=== PATIENT | male | born 1945 | race Caucasian/White ===

== ENCOUNTER 2017-06-25 13:22 | Inpatient (IN) | payer MEDICARE, BC ==
[~2017-06-25] VITALS: Ht 175.3 cm; Wt 120.2 kg
[~2017-06-25 13:22] MED LIST: ALDACTONE25 MG PO; ALLOPURINOL300 MG PO; AMARYL2 MG PO; AMIODARONE HCL200 MG PO; Apixab PO; CARVEDILOL12.5 MG PO; COREG12.5 MG PO; COZAAR100 MG PO; DOXYCYCLINE HY100 MG PO; FLUCTICASONE INH; FUROSEMIDE40 MG PO; GLIMEPIRIDE2 MG PO; HYDRALAZINE HCL25 MG PO; IPRATROPIUM BRO15 ML INH; MONTELUKAST SOD10 MG PO; PANTOPRAZOLE SO40 MG PO; SINGULAIR10 MG PO; SYMBICORT 16010.2 GM; ZANTAC300 MG PO
[2017-06-25] MEDS ORDERED: ASPIRIN 81 MG CHEW TAB PO ONE ×2 (14:15→15:30)
[2017-06-25 14:31] LABS: BASOPHILS % 0.3 % (0.0-1.0); EOSINOPHILS # (AUTO) 0.3 (0.0-0.4); EOSINOPHILS % 5.3 % (0.0-6.0); HEMATOCRIT 36.1 % (38.2-49.6); HEMOGLOBIN 11.5 g/dL (14.0-18.0); LYMPHOCYTES # (AUTO) 1.1 (1.0-3.2); LYMPHOCYTES % 19.7 % (18.0-39.1); MEAN CORPUSCULAR HEMOGLOBIN 28.8 pg (28-32); MEAN CORPUSCULAR HGB CONC 31.9 g/dL (31-35); MEAN CORPUSCULAR VOLUME 90.3 fL (81-99); MONOCYTES # (AUTO) 0.4 (0.2-0.8); MONOCYTES % 7.6 % (4.4-11.3); NEUTROPHILS # (AUTO) 3.9 (2.1-6.9); NEUTROPHILS % 66.8 % (38.7-80.0); PLATELET COUNT 129 x10e3/uL (140-360); RED CELL DISTRIBUTION WIDTH 15.9 % (11.7-14.4)
[2017-06-25 14:39] LABS: INR 1.42; PROTHROMBIN TIME 16.3 seconds (11.9-14.5)
[2017-06-25 14:40] LABS: PARTIAL THROMBOPLASTIN TIME 28.7 seconds (23.8-35.5)
[2017-06-25 14:46] LABS: ALBUMIN 3.3 g/dL (3.5-5.0); ALBUMIN/GLOBULIN RATIO 1.1 (0.8-2.0); ANION GAP 14.8 mmol/L (8-16); CALCIUM 9.2 mg/dL (8.4-10.2); CREATININE, SERUM 2.42 mg/dL (0.72-1.25); MAGNESIUM 2.5 MG/DL (1.3-2.1); POTASSIUM 3.8 mmol/L (3.5-5.1)
[2017-06-25 14:55] LABS: CREATINE KINASE MB 2.7 ng/mL (0-5.0)
[2017-06-25] MEDS ORDERED: MORPHINE SULFATE 2 MG/ML SYR IV PRN (15:30)
[2017-06-25] MEDS ORDERED: SODIUM CHLORIDE FLUSH 10 ML SYR INJ PRN (15:30)
[2017-06-25] MEDS ORDERED: NITROGLYCERIN 0.4 MG SUBL SL PRN (15:30)
--- NOTE | 2017-06-25 15:36 | Diagnostic Imaging Report ---
PROCEDURE: A single AP view of the chest. COMPARISON: 10/12/2016 INDICATIONS: CHEST PAIN FINDINGS: Lines/tubes: Left chest wall pacemaker. Lead tips are not well seen due to technique. Lungs: The bibasilar opacities are likely related to subsegmental atelectasis. No evidence of infection or edema. Pleura: There is no pleural effusion or pneumothorax. Heart and mediastinum: Mild cardiomegaly. Bones: No acute bony abnormality. IMPRESSION: No evidence of infection or edema. Dictated by: Boogie Lopez M.D. on 06/25/2017 at 15:38 Electronically approved by: Boogie Lopez M.D. on 06/25/2017 at 15:38
[2017-06-25 15:40] LABS: CLARITY,URINE CLEAR (CLEAR); COLOR,URINE YELLOW (YELLOW); LEUKOCYTE ESTERASE ,URINE NEGATIVE (NEGATIVE)
[2017-06-25 15:41] LABS: BILIRUBIN,URINE NEGATIVE (NEGATIVE); KETONES,URINE NEGATIVE (NEGATIVE); NITRITE,URINE NEGATIVE (NEGATIVE); PROTEIN,URINE DIPSTICK TRACE (NEGATIVE); URINE UROBILINOGEN 0.2 mg/dL (0.2 - 1)
[2017-06-25 15:43] LABS: BACTERIA,URINE RARE /HPF; MUCUS,URINE FEW (RARE); RBC,URINE 0-5 /HPF (0-5)
[2017-06-25] MEDS: FAMOTIDINE 20 MG TAB PO SCH (15:46)
--- OUTSIDE RECORDS SUMMARY | 2017-06-25 16:30 | XMS REPORT ---
Author Author [facility] Address Unknown Phone Unavailable Care Team Providers Care Panel Assembler Name Role Phone KATHLEEN MCDOWELL Unavailable Unavailable Problems This patient has no known problems. Allergies, Adverse Reactions, Alerts This patient has no known allergies or adverse reactions. Medications This patient has no known medications. Results Test Description Test Time Test Comments Text Results Atomic Results Result Comments CHEST SINGLE (PORTABLE) [place] [address] Patient Name: GERA MENDEZ JR MR #: [id number] : 1945 Age/Sex: 72/M Req #: [id number] Adm Physician: Ordered by: LURDES BEE IMPREGNATION OPERATOR Report #: [id number] Location: ER Room/Bed: Procedure: [id number] DX/CHEST SINGLE (PORTABLE) Exam Date: 06/25/17 Exam Time: 1430 REPORT STATUS: Signed PROCEDURE: A single AP view of the chest. COMPARISON: 10/12/2016 INDICATIONS: CHEST PAIN FINDINGS: Lines/tubes: Left chest wall pacemaker. Lead tips are not well seen due to technique. Lungs: The bibasilar opacities are likely related to subsegmental atelectasis. No evidence of infection or edema. Pleura: There is no pleural effusion or pneumothorax. Heart and mediastinum: Mild cardiomegaly. Bones: No acute bony abnormality. IMPRESSION: No evidence of infection or edema. Dictated by: Debra Lopez M.D. on 06/25/2017 at 15:38 Electronically approved by: Debra Lopez M.D. on 06/25/2017 at 15:38 Dictated By: DEBRA LOPEZ MD [id number] Transcribed By: ERNA on 06/25/17 1538 COPY TO: LURDES BEE NP
[2017-06-25 18:00] VITALS: BP 168/88
[2017-06-25 19:26] VITALS: BP 168/88
[2017-06-25 20:00] VITALS: BP 149/80
[2017-06-25] MEDS: GLIMEPIRIDE 2 MG TAB PO SCH (20:38)
[2017-06-25] MEDS: HYDRALAZINE HCL 25 MG TAB PO SCH (20:38)
[2017-06-25] MEDS: FUROSEMIDE INJ 10 MG/ML 2 ML VIAL IV SCH (20:38)
[2017-06-25] MEDS: CARVEDILOL 12.5 MG TAB PO SCH (20:39)
[2017-06-25] MEDS ORDERED: [UNRECOGNIZED DRUG - OTHER] PO SCH (21:00)
[2017-06-25] MEDS ORDERED: APIXABAN 5 MG TABLET PO SCH (21:00)
[2017-06-25 23:39] LABS: CREATINE KINASE MB 2.6 ng/mL (0-5.0)
[2017-06-25 23:45] VITALS: BP 149/83
[2017-06-26] MEDS: FAMOTIDINE 20 MG TAB PO SCH ×2 (03:45→16:19)
[2017-06-26 04:30] VITALS: BP 118/51
[2017-06-26 06:14] LABS: BASOPHILS % 0.5 % (0.0-1.0); EOSINOPHILS # (AUTO) 0.4 (0.0-0.4); HEMATOCRIT 34.2 % (38.2-49.6); LYMPHOCYTES # (AUTO) 1.3 (1.0-3.2); LYMPHOCYTES % 22.2 % (18.0-39.1); MEAN CORPUSCULAR HEMOGLOBIN 28.6 pg (28-32); MEAN CORPUSCULAR HGB CONC 32.2 g/dL (31-35); MEAN CORPUSCULAR VOLUME 88.8 fL (81-99); MONOCYTES # (AUTO) 0.5 (0.2-0.8); MONOCYTES % 8.2 % (4.4-11.3); NEUTROPHILS # (AUTO) 3.7 (2.1-6.9); NEUTROPHILS % 62.8 % (38.7-80.0); PLATELET COUNT 119 x10e3/uL (140-360); RED BLOOD COUNT 3.85 x10e6/uL (4.3-5.7); RED CELL DISTRIBUTION WIDTH 15.8 % (11.7-14.4)
[2017-06-26 06:27] LABS: INR 1.32; PARTIAL THROMBOPLASTIN TIME 29.1 seconds (23.8-35.5); PROTHROMBIN TIME 15.4 seconds (11.9-14.5)
[2017-06-26 06:38] LABS: ANION GAP 12.4 mmol/L (8-16); CALCIUM 9.1 mg/dL (8.4-10.2); CHOL/HDL RATIO 6.5 (3.9-4.7); CREATININE, SERUM 2.26 mg/dL (0.72-1.25); POTASSIUM 3.4 mmol/L (3.5-5.1)
[2017-06-26] MEDS ORDERED: GLIMEPIRIDE 2 MG TAB PO SCH (07:30)
--- NOTE | 2017-06-26 07:40 | Diagnostic Imaging Report ---
EXAMINATION: Chest, CHEST SINGLE (PORTABLE) INDICATION: Chest pain COMPARISON: Portable chest 06/25/2017 FINDINGS: LINES: Left chest cardiac device with leads projecting over the expected regions of the right atrium and ventricle. Heart: Normal cardiac silhouette. Vascular: The pulmonary vasculature is within normal limits. Atherosclerotic calcifications of the aortic arch. Mediastinum: No mediastinal, hilar, or axillary mass or lymphadenopathy. Lungs: No parenchymal mass. No focal consolidation. Bibasilar atelectasis. Pleura: No pleural effusion. No pneumothorax. Bones: No acute osseous abnormality. Degenerative changes of the thoracic spine. Soft tissues: Normal. Impression: No acute radiographic abnormality. Signed by: Dr. Gaetano Ennis M.D. on 06/26/2017 7:37 AM
[2017-06-26 07:46] VITALS: BP 159/77
[2017-06-26] MEDS: GLIMEPIRIDE 2 MG TAB PO SCH ×2 (08:53→16:18)
[2017-06-26] MEDS: HYDRALAZINE HCL 25 MG TAB PO SCH ×3 (08:54→21:48)
[2017-06-26] MEDS: FUROSEMIDE INJ 10 MG/ML 2 ML VIAL IV SCH ×3 (08:54→21:47)
[2017-06-26] MEDS: CARVEDILOL 12.5 MG TAB PO SCH ×2 (08:54→16:19)
[2017-06-26] MEDS: AMIODARONE HCL 200 MG TAB PO SCH (08:54)
[2017-06-26] MEDS: PANTOPRAZOLE SOD 40 MG TABEC PO SCH (08:55)
[2017-06-26] MEDS: MONTELUKAST SODIUM 10 MG TAB PO SCH (08:55)
[2017-06-26] MEDS: LOSARTAN POTASSIUM 100 MG TAB PO SCH (08:55)
[2017-06-26] MEDS: ALLOPURINOL 300 MG TAB PO SCH (08:55)
[2017-06-26] MEDS ORDERED: APIXABAN 5 MG TABLET PO SCH ×2 (09:00)
[2017-06-26] MEDS ORDERED: HYDRALAZINE HCL 25 MG TAB PO SCH (09:00)
[2017-06-26] MEDS ORDERED: [UNRECOGNIZED DRUG - OTHER] PO SCH (09:00)
[2017-06-26] MEDS ORDERED: CARVEDILOL 12.5 MG TAB PO SCH (09:00)
[2017-06-26 09:11] VITALS: BP 159/77
--- NOTE | 2017-06-26 09:55 | History and Physical ---
HISTORY OF PRESENT ILLNESS: This is a 72-year-old male with a history of coronary artery disease, with a history of hypertension and atrial fibrillation, was in usual state of health until about a week ago the patient started with increased shortness of breath, increased weight gain, and was treated with Lasix; and chronic Lian. Patient continued to have weight gain and also shortness of breath and had sustained chest pains yesterday, and the patient came to the emergency room and was admitted for rule out acute coronary syndrome. PAST MEDICAL HISTORY: History of hypertension, history of atrial fibrillation, history of diabetes mellitus, history of allergies, history of reflux esophagitis. MEDICINES: He takes at home are: 1. Allopurinol 300 mg daily for his gout. 2. Amiodarone 200 mg daily. 3. Symbicort 160 per 4.5. 4. Carvedilol 12.5 mg twice a day. 5. Lasix 80 mg a day. 6. Glimepiride 2 mg. 7. Hydralazine 25 mg b.i.d. 8. Losartan 100 mg. 9. Singulair 10. 10. Pantoprazole 40 mg. 11. Eliquis 5 mg twice a day. 12. Fluticasone 100 mcg inhaler. PAST SURGICAL HISTORY: The patient had history of AICD placement with Dr. Brush and also tonsillectomy. FAMILY HISTORY: Positive for hypertension and coronary artery disease and diabetes. REVIEW OF SYSTEMS: Positive for chest pain. Positive for shortness of breath. Some orthopnea. No PND. Positive for pedal edema. No nausea, vomiting, diarrhea. No constipation. No rectal bleeding. No hematochezia, no hematemesis either. PHYSICAL EXAMINATION: GENERAL: Patient is alert and oriented x3. VITAL SIGNS: Temperature is 97, blood pressure is 118/51, pulse oximetry 98%. HEENT: Normocephalic, atraumatic. Pupils react to light and accommodation. CVS: S1 and S2 regular rate and rhythm. Irregularly irregular. ABDOMEN: Nontender, nondistended. EXTREMITIES: No clubbing, no cyanosis. Patient has compression socks edema. Trace edema in lower extremity also. LABORATORY VALUES: White count is 5.8, hemoglobin of 11.5, hematocrit of 36.1, RDW is 15.9. Chemistry: Sodium 140, BUN of 81, creatinine of 2.42, magnesium is 2.5. Troponin is 0.033, 0.04, and 0.039. BNP was 352. LDL was 134, HDL was 35, cholesterol was 284, and triglyceride of 294. IMAGING: Chest x-ray showed no evidence of infection or edema, mild cardiomegaly. ASSESSMENT: 1. Chest pain. 2. History of coronary artery disease. 3. History of systolic heart failure, looks like compensated right now. 4. Acute kidney injury with history of chronic kidney disease. 5. Atrial fibrillation. 6. Diabetes mellitus. 7. Morbid obesity. 8. Gout. PLAN: To continue IV diuresis of the patient. He is on IV 20 mg 3 times a day, will continue the same. I will go ahead and cut down his Eliquis to 2.5 for his kidney disease. Continue monitoring his electrolytes. Dr. Her has been consulted. Will order an echocardiogram. Further recommendations on clinical course. Will continue monitoring the patient along with cardiology and also check a thyroid panel. Job#: [id number]
[2017-06-26 11:14] VITALS: BP 156/76
--- NOTE | 2017-06-26 13:58 | Consultation ---
DATE OF CONSULTATION: June 26, 2017 CARDIOLOGY CONSULTATION REASON FOR CONSULTATION: Chest pain. HISTORY OF PRESENT ILLNESS: This is a 72-year-old male with known history of nonischemic cardiomyopathy, hypertension, hyperlipidemia, diabetes with end-organ damage, chronic kidney disease stage 4, gout. The patient presents to [facility] with increased abdominal girth, was noted with some shortness of breath. Cardiology was consulted for evaluation. Patient seen in room in no acute distress. Denies any chest pains. Does have some shortness of breath which is chronic. BNP was only 350. Chest x-ray is showing no acute findings. PAST MEDICAL HISTORY 1. Nonischemic cardiomyopathy by heart catheterization December 2015. 2. Chronic systolic heart failure. 3. Hypertension. 4. Hyperlipidemia. 5. Diabetes with end-organ damage. 6. Asthma. 7. Chronic kidney disease stage 4. 8. Reflux. 9. Obesity. 10. Gout. 11. Status post bi-V ICD. SURGICAL HISTORY 1. Sinus surgery. 2. Bi-V ICD. SOCIAL HISTORY: He is . Nonsmoker, no alcohol. 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 FAMILY HISTORY: Father at the age of 82 with apparent history of CVA. Mother with a history of hypertension. Has 1 sister with a history of hypertension. Four children reported as healthy. REVIEW OF SYSTEMS GENERAL: Positive for some weakness. No fatigue. No fevers, no chills. HEENT: No dizziness, lightheadedness. No vision impairments. No nasal drainage, epistaxis. No sore throat. PULMONARY: Positive for shortness of breath on exertion which is chronic. No hemoptysis. CARDIOVASCULAR: No chest pain, no palpitations. GI: Abdominal bloating, girth. Good appetite. : Positive for frequency and urgency. No hematuria. MUSCULOSKELETAL: Generalized joint pains. PERIPHERAL VASCULAR: Chronic lower extremity edema slightly. SKIN: No rashes or sores. NEUROLOGIC: No lightheadedness, dizziness or seizure activity. PHYSICAL EXAMINATION VITAL SIGNS: Height 69 inches, weight 267 pounds. Temperature 97.7, pulse 75, respiratory 18, blood pressure 156/76, pulse ox 97 on room air. GENERAL: No acute distress. Appears stated age. HEENT: Pupils equal and reactive. Extraocular motor intact. Normocephalic. Trachea midline. No JVD, no thyromegaly. No carotid bruits. HEART: Regular rate and rhythm. PMI in 5th intercostal space. RESPIRATORY: Bilateral breath sounds clear to auscultation. No wheezes, no rales. ABDOMEN: Soft, nontender. No organomegaly noted. EXTREMITIES: +1 lower extremity edema. VASCULAR: +2 radial pulses, +2 bilateral DP/PT pulses. NEUROLOGIC: Cranial nerves 2-12 seem intact. LABS: Sodium 142, potassium 3.4, chloride 110, BUN 76 with creatinine 2.2, glucose 129. BNP 352. TSH 1.7. White blood cell count 5, hemoglobin 11, hematocrit 34.2, platelets 119. CHEST X-RAY: No acute abnormalities. EKG: Sinus rhythm. IMPRESSION 1. Chronic systolic heart failure. 2. Paroxysmal atrial fibrillation. 3. Hypertension. 4. Chronic kidney disease stage 4. 5. Diabetes. 6. Hyperlipidemia. 7. Obesity. PLAN-CLEMENTE 1. Patient with a history of nonischemic cardiomyopathy. Currently appears euvolemic. BNP is only 350. Will continue heart failure therapy. 2. Patient with a long-standing history of chronic kidney disease. Will suggest renal consult. 3. Echo has been ordered. The cardiology attending will review. Thank you very much for this consult. Will follow patient and adjust cardiac therapy as clinical course dictates. Dictated by: Ravi Hurd NP Job#: [id number] BIA
[2017-06-26] MEDS ORDERED: POTASSIUM CHLORIDE 20 MEQ TAB CR PO ONE (15:15)
[2017-06-26 17:22] LABS: CLARITY,URINE CLEAR (CLEAR); COLOR,URINE YELLOW (YELLOW)
[2017-06-26 17:23] LABS: LEUKOCYTE ESTERASE ,URINE NEGATIVE (NEGATIVE); NITRITE,URINE NEGATIVE (NEGATIVE); PROTEIN,URINE DIPSTICK NEGATIVE (NEGATIVE)
[2017-06-26 17:24] LABS: BILIRUBIN,URINE NEGATIVE (NEGATIVE); KETONES,URINE NEGATIVE (NEGATIVE); URINE UROBILINOGEN 0.2 mg/dL (0.2 - 1)
[2017-06-26 17:37] LABS: BACTERIA,URINE FEW /HPF; EPITHELIAL CELLS,URINE FEW /LPF; WBC,URINE (MAN) 0-5 /HPF (0-5)
[2017-06-26 17:39] LABS: CREATININE,URINE RANDOM 49.19 mg/dL (63-166); SODIUM,URINE 77 mmol/L
[2017-06-26 19:00] VITALS: BP 147/78
[2017-06-26] MEDS: APIXABAN 5 MG TABLET PO SCH (21:48)
[2017-06-26 22:14] VITALS: BP 147/78
--- NOTE | 2017-06-26 22:18 | Consultation ---
DATE OF CONSULTATION: June 26, 2017 NEPHROLOGY CONSULTATION REASON FOR CONSULTATION: Chronic kidney disease. HISTORY OF PRESENT ILLNESS: This is a pleasant, 72-year-old white gentleman with past medical history of chronic kidney disease, stage 3/4 with . Ischemic cardiomyopathy with EF between 10% and 40%, according to the patient, status post biventricular AICD, sinus surgery, hypertension, hyperlipidemia, diabetes, obesity, gout. He was admitted with increasing abdominal girth and weight. Serum creatinine was noted to be 2.3 for which nephrology consultation was obtained for further evaluation and management and treatment. At the time of my examination, he appeared in no acute distress. He denied any headache, blurry vision, double vision, earache, discharge from the ears, sore throat, fevers, chills, chest pain, shortness of breath, cough, paroxysmal nocturnal dyspnea, dyspnea on exertion, abdominal pain, diarrhea, bleeding, history of kidney problems, skin rash, joint pain or any focal weakness. PAST MEDICAL, SURGICAL HISTORY: As above. PERSONAL, SOCIAL HISTORY: No history of alcohol or tobacco. MEDICATIONS: See the medication sheet. It was reviewed. PHYSICAL EXAMINATION GENERAL: He appeared in no acute distress. VITAL SIGNS: Blood pressure 156/76, respirations 18, heart rate 75, temperature 97.7. HEENT: Head was normocephalic, atraumatic. Pupils are reactive to light. Mouth: Oral mucosa was moist. NECK: Supple. There is no significant lymphadenopathy or JVD. CHEST: Fair air entry with no crackles. HEART: S1 and S2. ABDOMEN: Obese but soft. Bowel sounds are positive. EXTREMITIES: No significant edema. SIDEHAND: He was awake and alert. Cranial nerves were intact. There was no gross motor deficit noted. LABORATORY DATA: Sodium 142, potassium 3.4, chloride 110, CO2 of 23, BUN 17, creatinine 2.26. Normal LFTs. BNP was 352 yesterday. Albumin was 3. White cell count 5.8. Hemoglobin 11, hematocrit 34.2, platelets 119,000. Chest x-ray was negative. IMPRESSION: 1. Chronic kidney disease, stage 3/4, relatively stable. Current creatinine at 2.26 MOST LIKELY from nephrosclerosis with an element of cardiorenal syndrome? He is nonoliguric by history. 2. Congestive heart failure with nonischemic cardiomyopathy, euvolemic and compensated at the present time. 3. Mild anemia secondary to chronic kidney disease. PLAN: Strict I's and O's. No nonsteroidal anti-inflammatory drugs, MARTIN inhibitor, IV dye, ARB. UA, spot urine sodium and creatinine. Ultrasound of the kidneys, CBC and BMP in the a.m. Continue current treatment for now. Maybe after 24 hours or so, we can switch the IV Lasix to oral Lasix. I also gave him my business card and recommended following up in the outpatient setting in 3-4 weeks after discharge. Further recommendations to follow. Thank you for the consultation. Job#: [id number] TAMARA MCCOY
--- NOTE | 2017-06-26 22:30 | Diagnostic Imaging Report ---
EXAM: Renal Ultrasound INDICATION: Chronic medical renal disease COMPARISON: None TECHNIQUE: Transverse and longitudinal images of the kidneys and bladder were obtained. FINDINGS: Right Kidney: Size: 10.7 x 6.8 x 5.7 cm. Appearance: Increased echogenicity. Collecting system: No hydronephrosis Stones: * Lateral inferior 1.6 cm stone. * Inferior mid interpolar region 1.9 cm stone. Cyst/Mass: * Lateral interpolar exophytic cystic lesion 1.4 x 1.1 x 1 cm. * Lateral inferior interpolar cyst measuring 2.9 x 1.9 x 2.2 cm. * Inferior medial cyst measuring 3.2 x 3.3 x 3.1 cm Left Kidney: Size: 9.7 x 5.8 x 5 cm Appearance: Increased echogenicity. Collecting system: No hydronephrosis Stones: * Echogenic left renal stone with posterior acoustic shadowing in the inferior mid renal collecting system measuring 1.4 cm in largest dimension Cyst/Mass: None Bladder: Normal IMPRESSION: 1. Bilateral nephrolithiasis as described above. 2. Right renal cystic changes. 3. Hyperechoic renal parenchyma suggestive of chronic medical renal disease Signed by: Dr. Everardo Mckinney M.D. on 06/26/2017 10:27 PM
[2017-06-27] VITALS: BP 147/75
[2017-06-27] MEDS: FAMOTIDINE 20 MG TAB PO SCH ×2 (03:14→16:04)
[2017-06-27 06:00] VITALS: BP 132/59
[2017-06-27 06:44] LABS: BASOPHILS % 0.6 % (0.0-1.0); EOSINOPHILS # (AUTO) 0.3 (0.0-0.4); EOSINOPHILS % 5.1 % (0.0-6.0); HEMATOCRIT 36.2 % (38.2-49.6); HEMOGLOBIN 11.7 g/dL (14.0-18.0); LYMPHOCYTES # (AUTO) 1.3 (1.0-3.2); LYMPHOCYTES % 24.1 % (18.0-39.1); MEAN CORPUSCULAR HGB CONC 32.3 g/dL (31-35); MEAN CORPUSCULAR VOLUME 89.8 fL (81-99); MONOCYTES # (AUTO) 0.6 (0.2-0.8); MONOCYTES % 10.5 % (4.4-11.3); NEUTROPHILS # (AUTO) 3.1 (2.1-6.9); NEUTROPHILS % 59.3 % (38.7-80.0); PLATELET COUNT 123 x10e3/uL (140-360); RED BLOOD COUNT 4.03 x10e6/uL (4.3-5.7); RED CELL DISTRIBUTION WIDTH 15.7 % (11.7-14.4)
[2017-06-27 07:15] LABS: ANION GAP 13.1 mmol/L (8-16); CALCIUM 9.3 mg/dL (8.4-10.2); CREATININE, SERUM 2.41 mg/dL (0.72-1.25); MAGNESIUM 2.1 MG/DL (1.3-2.1); POTASSIUM 3.1 mmol/L (3.5-5.1)
[2017-06-27] MEDS ORDERED: POTASSIUM CHLORIDE 20 MEQ TAB CR PO STA (07:44)
[2017-06-27 08:09] VITALS: BP 142/80
[2017-06-27 08:14] VITALS: BP 142/80
[2017-06-27] MEDS: FUROSEMIDE INJ 10 MG/ML 2 ML VIAL IV SCH ×3 (08:25→20:02)
[2017-06-27] MEDS: GLIMEPIRIDE 2 MG TAB PO SCH ×2 (08:25→16:04)
[2017-06-27] MEDS: APIXABAN 5 MG TABLET PO SCH ×2 (08:26→20:02)
[2017-06-27] MEDS: HYDRALAZINE HCL 25 MG TAB PO SCH ×3 (08:26→20:02)
[2017-06-27] MEDS: LOSARTAN POTASSIUM 100 MG TAB PO SCH (08:26)
[2017-06-27] MEDS: CARVEDILOL 12.5 MG TAB PO SCH ×2 (08:26→16:04)
[2017-06-27] MEDS: ALLOPURINOL 300 MG TAB PO SCH (08:26)
[2017-06-27] MEDS: AMIODARONE HCL 200 MG TAB PO SCH (08:26)
[2017-06-27] MEDS: PANTOPRAZOLE SOD 40 MG TABEC PO SCH (08:26)
[2017-06-27] MEDS: MONTELUKAST SODIUM 10 MG TAB PO SCH (08:26)
[2017-06-27] MEDS ORDERED: POTASSIUM CHLORIDE 20 MEQ TAB CR PO ONE (18:00)
[2017-06-27 18:55] VITALS: BP 139/69
[2017-06-27 20:03] VITALS: BP 139/69
[2017-06-28] VITALS (8 sets, daily range): BP systolic 54–171; BP diastolic 54–86
[2017-06-28] MEDS: FAMOTIDINE 20 MG TAB PO SCH ×2 (03:35→17:11)
[2017-06-28 07:04] LABS: ANION GAP 13.5 mmol/L (8-16); CALCIUM 9.4 mg/dL (8.4-10.2); CREATININE, SERUM 2.69 mg/dL (0.72-1.25); POTASSIUM 3.5 mmol/L (3.5-5.1)
[2017-06-28] MEDS: CARVEDILOL 12.5 MG TAB PO SCH ×2 (08:20→17:12)
[2017-06-28] MEDS: GLIMEPIRIDE 2 MG TAB PO SCH ×2 (08:20→17:11)
[2017-06-28] MEDS: PANTOPRAZOLE SOD 40 MG TABEC PO SCH (08:39)
[2017-06-28] MEDS: MONTELUKAST SODIUM 10 MG TAB PO SCH (08:39)
[2017-06-28] MEDS: ALLOPURINOL 300 MG TAB PO SCH (08:39)
[2017-06-28] MEDS: AMIODARONE HCL 200 MG TAB PO SCH (08:39)
[2017-06-28] MEDS: LOSARTAN POTASSIUM 100 MG TAB PO SCH (08:39)
[2017-06-28] MEDS: APIXABAN 5 MG TABLET PO SCH ×2 (08:39→20:22)
[2017-06-28] MEDS: HYDRALAZINE HCL 25 MG TAB PO SCH ×3 (08:39→20:22)
[2017-06-28] MEDS: FUROSEMIDE INJ 10 MG/ML 2 ML VIAL IV SCH ×3 (10:00→20:21)
[2017-06-28] MEDS ORDERED: SPIRONOLACTONE 25 MG TAB PO ONE (17:45)
[2017-06-29] VITALS (8 sets, daily range): BP systolic 134–158; BP diastolic 57–78
[2017-06-29] MEDS: FAMOTIDINE 20 MG TAB PO SCH ×2 (03:02→16:48)
[2017-06-29 06:42] LABS: ANION GAP 15.4 mmol/L (8-16); CALCIUM 9.3 mg/dL (8.4-10.2); CREATININE, SERUM 3.02 mg/dL (0.72-1.25); MAGNESIUM 2.1 MG/DL (1.3-2.1); POTASSIUM 3.4 mmol/L (3.5-5.1)
[2017-06-29] MEDS ORDERED: SPIRONOLACTONE 25 MG TAB PO SCH (09:00)
[2017-06-29] MEDS: AMIODARONE HCL 200 MG TAB PO SCH (09:00)
[2017-06-29] MEDS: GLIMEPIRIDE 2 MG TAB PO SCH ×2 (09:02→16:48)
[2017-06-29] MEDS: CARVEDILOL 12.5 MG TAB PO SCH ×2 (09:03→16:48)
[2017-06-29] MEDS: HYDRALAZINE HCL 25 MG TAB PO SCH ×3 (09:03→21:56)
[2017-06-29] MEDS: POTASSIUM CHLORIDE 20 MEQ TAB CR PO SCH (09:03)
[2017-06-29] MEDS: APIXABAN 5 MG TABLET PO SCH ×2 (09:03→21:56)
[2017-06-29] MEDS: FUROSEMIDE INJ 10 MG/ML 2 ML VIAL IV SCH ×3 (09:03→21:56)
[2017-06-29] MEDS: LOSARTAN POTASSIUM 100 MG TAB PO SCH (09:03)
[2017-06-29] MEDS: ALLOPURINOL 300 MG TAB PO SCH (09:04)
[2017-06-29] MEDS: MONTELUKAST SODIUM 10 MG TAB PO SCH (09:04)
[2017-06-29] MEDS: PANTOPRAZOLE SOD 40 MG TABEC PO SCH (09:04)
[2017-06-29 12:29] LABS: PHOSPHORUS 4.2 MG/DL (2.3-4.7)
[2017-06-29] MEDS ORDERED: POTASSIUM CHLORIDE 20 MEQ TAB CR PO NR (12:30)
[2017-06-30 00:14] VITALS: BP 164/80
[2017-06-30] MEDS: FAMOTIDINE 20 MG TAB PO SCH ×2 (03:44→15:21)
[2017-06-30 04:42] VITALS: BP 121/60
[2017-06-30 07:36] LABS: ALBUMIN 3.3 g/dL (3.5-5.0); ANION GAP 15.9 mmol/L (8-16); CALCIUM 9.4 mg/dL (8.4-10.2); CREATININE, SERUM 3.22 mg/dL (0.72-1.25); POTASSIUM 3.9 mmol/L (3.5-5.1)
[2017-06-30 08:10] VITALS: BP 121/57
[2017-06-30] MEDS: MONTELUKAST SODIUM 10 MG TAB PO SCH (09:30)
[2017-06-30] MEDS: PANTOPRAZOLE SOD 40 MG TABEC PO SCH (09:30)
[2017-06-30] MEDS: FUROSEMIDE INJ 10 MG/ML 2 ML VIAL IV SCH (09:30)
[2017-06-30] MEDS: LOSARTAN POTASSIUM 100 MG TAB PO SCH (09:30)
[2017-06-30] MEDS: APIXABAN 5 MG TABLET PO SCH ×2 (09:30→21:27)
[2017-06-30] MEDS: ALLOPURINOL 300 MG TAB PO SCH (09:30)
[2017-06-30] MEDS: GLIMEPIRIDE 2 MG TAB PO SCH ×2 (09:30→17:20)
[2017-06-30] MEDS: HYDRALAZINE HCL 25 MG TAB PO SCH ×3 (09:30→21:27)
[2017-06-30] MEDS: AMIODARONE HCL 200 MG TAB PO SCH (09:30)
[2017-06-30] MEDS: CARVEDILOL 12.5 MG TAB PO SCH ×2 (09:30→17:21)
[2017-06-30] MEDS: POTASSIUM CHLORIDE 20 MEQ TAB CR PO SCH (09:30)
[2017-06-30] MEDS: SPIRONOLACTONE 25 MG TAB PO SCH (09:30)
[2017-06-30 09:57] VITALS: BP 178/84
[2017-06-30 16:23] VITALS: BP 122/59
[2017-06-30] MEDS: FUROSEMIDE 40 MG TAB PO SCH (17:21)
[2017-06-30 20:00] VITALS: BP 134/65
[2017-07-01] VITALS: BP 122/56
[2017-07-01 04:00] VITALS: BP 129/70
[2017-07-01] MEDS: FAMOTIDINE 20 MG TAB PO SCH ×2 (04:30→14:26)
[2017-07-01] MEDS: FUROSEMIDE 40 MG TAB PO SCH (05:06)
[2017-07-01 07:17] LABS: ALBUMIN 3.4 g/dL (3.5-5.0); ALBUMIN/GLOBULIN RATIO 1.3 (0.8-2.0); ANION GAP 14.7 mmol/L (8-16); CREATININE, SERUM 3.31 mg/dL (0.72-1.25); MAGNESIUM 2.5 MG/DL (1.3-2.1); POTASSIUM 3.7 mmol/L (3.5-5.1)
[2017-07-01 07:38] VITALS: BP 126/58
[2017-07-01] MEDS: APIXABAN 5 MG TABLET PO SCH ×2 (08:25→22:23)
[2017-07-01] MEDS: AMIODARONE HCL 200 MG TAB PO SCH (08:25)
[2017-07-01] MEDS: SPIRONOLACTONE 25 MG TAB PO SCH (08:25)
[2017-07-01] MEDS: GLIMEPIRIDE 2 MG TAB PO SCH ×2 (08:25→16:32)
[2017-07-01] MEDS: HYDRALAZINE HCL 25 MG TAB PO SCH ×3 (08:25→22:24)
[2017-07-01] MEDS: LOSARTAN POTASSIUM 100 MG TAB PO SCH (08:25)
[2017-07-01] MEDS: CARVEDILOL 12.5 MG TAB PO SCH ×2 (08:25→16:32)
[2017-07-01] MEDS: ALLOPURINOL 300 MG TAB PO SCH (08:26)
[2017-07-01] MEDS: PANTOPRAZOLE SOD 40 MG TABEC PO SCH (08:26)
[2017-07-01] MEDS: MONTELUKAST SODIUM 10 MG TAB PO SCH (08:26)
[2017-07-01 11:37] LABS: CREATININE,URINE RANDOM 101.57 mg/dL (63-166); TOTAL PROTEIN, URINE 8.2 mg/dL (1-14)
[2017-07-01 11:43] VITALS: BP 150/64
[2017-07-01 14:04] LABS: TOTAL PROTEIN 24HR, URINE 106.6 mg/24hr (50-100)
[2017-07-01] MEDS: BUMETANIDE 1 MG TAB PO SCH (16:32)
[2017-07-01 16:58] VITALS: BP 156/70
[2017-07-01 20:00] VITALS: BP 152/77
[2017-07-02] VITALS (7 sets, daily range): BP systolic 141–156; BP diastolic 66–76
[2017-07-02] MEDS: FAMOTIDINE 20 MG TAB PO SCH ×2 (04:30→16:13)
[2017-07-02 06:34] LABS: ALBUMIN 3.3 g/dL (3.5-5.0); ANION GAP 13.8 mmol/L (8-16); CALCIUM 9.5 mg/dL (8.4-10.2); CREATININE, SERUM 3.21 mg/dL (0.72-1.25); POTASSIUM 3.8 mmol/L (3.5-5.1)
[2017-07-02] MEDS: GLIMEPIRIDE 2 MG TAB PO SCH ×2 (08:44→16:14)
[2017-07-02] MEDS: APIXABAN 5 MG TABLET PO SCH ×2 (08:44→21:11)
[2017-07-02] MEDS: SPIRONOLACTONE 25 MG TAB PO SCH (08:44)
[2017-07-02] MEDS: AMIODARONE HCL 200 MG TAB PO SCH (08:44)
[2017-07-02] MEDS: PANTOPRAZOLE SOD 40 MG TABEC PO SCH (08:45)
[2017-07-02] MEDS: CARVEDILOL 12.5 MG TAB PO SCH ×2 (08:45→16:14)
[2017-07-02] MEDS: MONTELUKAST SODIUM 10 MG TAB PO SCH (08:45)
[2017-07-02] MEDS: BUMETANIDE 1 MG TAB PO SCH ×2 (08:45→16:14)
[2017-07-02] MEDS: LOSARTAN POTASSIUM 100 MG TAB PO SCH (08:45)
[2017-07-02] MEDS: ALLOPURINOL 300 MG TAB PO SCH (08:45)
[2017-07-02] MEDS: HYDRALAZINE HCL 25 MG TAB PO SCH ×3 (08:45→21:11)
[2017-07-03] VITALS (7 sets, daily range): BP systolic 108–167; BP diastolic 52–80
[2017-07-03] MEDS: FAMOTIDINE 20 MG TAB PO SCH ×2 (04:23→15:19)
[2017-07-03 09:20] LABS: ALBUMIN 3.5 g/dL (3.5-5.0); ANION GAP 15.8 mmol/L (8-16); CALCIUM 9.7 mg/dL (8.4-10.2); CREATININE, SERUM 3.38 mg/dL (0.72-1.25); MAGNESIUM 2.5 MG/DL (1.3-2.1); POTASSIUM 3.8 mmol/L (3.5-5.1)
[2017-07-03] MEDS: GLIMEPIRIDE 2 MG TAB PO SCH ×2 (09:45→17:17)
[2017-07-03] MEDS: MONTELUKAST SODIUM 10 MG TAB PO SCH (09:46)
[2017-07-03] MEDS: CARVEDILOL 12.5 MG TAB PO SCH ×2 (09:46→17:18)
[2017-07-03] MEDS: HYDRALAZINE HCL 25 MG TAB PO SCH ×3 (09:46→21:20)
[2017-07-03] MEDS: LOSARTAN POTASSIUM 100 MG TAB PO SCH (09:46)
[2017-07-03] MEDS: AMIODARONE HCL 200 MG TAB PO SCH (09:46)
[2017-07-03] MEDS: PANTOPRAZOLE SOD 40 MG TABEC PO SCH (09:46)
[2017-07-03] MEDS: SPIRONOLACTONE 25 MG TAB PO SCH (09:46)
[2017-07-03] MEDS: BUMETANIDE 1 MG TAB PO SCH ×2 (09:46→17:17)
[2017-07-03] MEDS: ALLOPURINOL 300 MG TAB PO SCH (09:46)
[2017-07-03] MEDS: APIXABAN 5 MG TABLET PO SCH ×2 (09:46→21:30)
[2017-07-04] VITALS (8 sets, daily range): BP systolic 105–159; BP diastolic 53–72
[2017-07-04] MEDS: FAMOTIDINE 20 MG TAB PO SCH ×2 (04:00→15:05)
[2017-07-04 06:27] LABS: ALBUMIN 3.3 g/dL (3.5-5.0); CALCIUM 9.5 mg/dL (8.4-10.2); CREATININE, SERUM 3.63 mg/dL (0.72-1.25)
[2017-07-04] MEDS: GLIMEPIRIDE 2 MG TAB PO SCH ×2 (08:39→17:37)
[2017-07-04] MEDS: APIXABAN 5 MG TABLET PO SCH ×2 (08:39→21:24)
[2017-07-04] MEDS: HYDRALAZINE HCL 25 MG TAB PO SCH ×3 (08:39→21:00)
[2017-07-04] MEDS: BUMETANIDE 1 MG TAB PO SCH ×2 (08:39→17:37)
[2017-07-04] MEDS: CARVEDILOL 12.5 MG TAB PO SCH ×2 (08:39→17:37)
[2017-07-04] MEDS: LOSARTAN POTASSIUM 100 MG TAB PO SCH (08:39)
[2017-07-04] MEDS: AMIODARONE HCL 200 MG TAB PO SCH (08:39)
[2017-07-04] MEDS: SPIRONOLACTONE 25 MG TAB PO SCH (08:39)
[2017-07-04] MEDS: PANTOPRAZOLE SOD 40 MG TABEC PO SCH (08:40)
[2017-07-04] MEDS: MONTELUKAST SODIUM 10 MG TAB PO SCH (08:40)
[2017-07-04] MEDS: ALLOPURINOL 300 MG TAB PO SCH (08:40)
[2017-07-05] VITALS: BP 118/55
[2017-07-05 04:00] VITALS: BP 122/59
[2017-07-05] MEDS: FAMOTIDINE 20 MG TAB PO SCH ×2 (04:24→16:21)
[2017-07-05 07:28] LABS: ALBUMIN 3.6 g/dL (3.5-5.0); ALBUMIN/GLOBULIN RATIO 1.2 (0.8-2.0); ANION GAP 16.1 mmol/L (8-16); CALCIUM 9.5 mg/dL (8.4-10.2); CREATININE, SERUM 3.66 mg/dL (0.72-1.25); POTASSIUM 4.1 mmol/L (3.5-5.1)
[2017-07-05 08:32] VITALS: BP 119/56
[2017-07-05] MEDS: SPIRONOLACTONE 25 MG TAB PO SCH (08:50)
[2017-07-05] MEDS: PANTOPRAZOLE SOD 40 MG TABEC PO SCH (08:50)
[2017-07-05] MEDS: ALLOPURINOL 300 MG TAB PO SCH (08:50)
[2017-07-05] MEDS: MONTELUKAST SODIUM 10 MG TAB PO SCH (08:50)
[2017-07-05] MEDS: BUMETANIDE 1 MG TAB PO SCH ×2 (08:50→16:21)
[2017-07-05] MEDS: APIXABAN 5 MG TABLET PO SCH (08:50)
[2017-07-05] MEDS: LOSARTAN POTASSIUM 100 MG TAB PO SCH (08:50)
[2017-07-05] MEDS: CARVEDILOL 12.5 MG TAB PO SCH ×2 (08:50→16:21)
[2017-07-05] MEDS: AMIODARONE HCL 200 MG TAB PO SCH (08:50)
[2017-07-05] MEDS: GLIMEPIRIDE 2 MG TAB PO SCH ×2 (08:50→16:21)
[2017-07-05] MEDS: HYDRALAZINE HCL 25 MG TAB PO SCH ×2 (11:34→16:21)
[2017-07-05 12:25] VITALS: BP 140/67
[2017-07-05 16:50] VITALS: BP 125/56
[2017-07-05] MEDS ORDERED: SPIRONOLACTONE25 MG PO (17:58)
[2017-07-05] MEDS ORDERED: BUMETANIDE1 MG PO (17:59)
== END 2017-07-05 18:41 | disposition home or self-care (01) | DRG 292 ==
LOC: ER 13:22 → ERHOLD 16:28 → IMCU 16:57 → OBSVTOIN 06-28 11:14 → MED/SURG 06-29 15:58
PROVIDERS: ADMIT Internal Medicine; ATTEND Internal Medicine
DX: I13.0 Hypertensive heart and chronic kidney disease with heart failure and stage 1 through stage 4 chronic kidney disease, or unspecified chronic kidney disease (principal); N18.4 Chronic kidney disease, stage 4 (severe); I50.22 Chronic systolic (congestive) heart failure; E66.2 Morbid (severe) obesity with alveolar hypoventilation; N17.9 Acute kidney failure, unspecified; E11.22 Type 2 diabetes mellitus with diabetic chronic kidney disease; I48.0 Paroxysmal atrial fibrillation; Z79.01 Long term (current) use of anticoagulants; E78.5 Hyperlipidemia, unspecified; Z95.810 Presence of automatic (implantable) cardiac defibrillator; Z68.39 Body mass index [BMI] 39.0-39.9, adult; I25.10 Atherosclerotic heart disease of native coronary artery without angina pectoris; M10.9 Gout, unspecified; I42.9 Cardiomyopathy, unspecified; D63.8 Anemia in other chronic diseases classified elsewhere
CPT/HCPCS: 36415; 71045; 76770; 80048; 80053; 80061; 81001; 81050; 82310; 82507; 82550; 82553; 82570; 82575; 83735; 83880; 83945; 83970; 84100; 84156; 84300; 84443; 84484; 84550; 85025; 85610; 85730; 93005; 93306; 99284; G0378; J1940

== ENCOUNTER → 2019-08-28 | Emergency (ER) | payer MEDICARE, BC, OTHER ==
[~2019-08-28] VITALS: Ht 175.3 cm; Wt 136.1 kg
[~2019-08-28] MED LIST changes: +ACETAMINOPHEN 325 MG TAB PO PRN; +AZITHROMYCIN 500MG/NS 250 ML 250 ML IV SCH; +BUMETANIDE1 MG PO; +DEXAMETHASONE SOD PHOS 10 MG/1 ML VIAL IV ONE; +SODIUM CHLORIDE 0.9% 1000ML 1,000 ML IV STA; +SPIRONOLACTONE25 MG PO
--- NOTE | 2019-08-29 00:03 | Diagnostic Imaging Report ---
EXAMINATION: CHEST SINGLE (PORTABLE) INDICATION: ^Y ^COVID ^[id number] ^[id number] COMPARISON: None FINDINGS: AP view TUBES and LINES: Left mechanical cardiac device. LUNGS: Patchy consolidations within both lungs, notably in the lung bases. PLEURA: No pleural effusion or pneumothorax. HEART AND MEDIASTINUM: The cardiomediastinal silhouette is at the upper limit of normal in size. BONES AND SOFT TISSUES: No acute osseous lesion. Soft tissues are unremarkable. UPPER ABDOMEN: No free air under the diaphragm. IMPRESSION: Patchy pulmonary airspace disease consistent with provided history of viral pneumonia. Signed by: Luis Guerrero MD on 08/28/2019 11:59 PM
[2019-08-29 02:12] LABS: BASOPHILS % 0.2 % (0.0-1.0); HEMATOCRIT 35.1 % (38.2-49.6); HEMOGLOBIN 11.5 g/dL (14.0-18.0); LYMPHOCYTES # (AUTO) 0.4 (1.0-3.2); LYMPHOCYTES % 7.5 % (18.0-39.1); MEAN CORPUSCULAR HEMOGLOBIN 30.9 pg (28-32); MEAN CORPUSCULAR HGB CONC 32.8 g/dL (31-35); MEAN CORPUSCULAR VOLUME 94.4 fL (81-99); MONOCYTES # (AUTO) 0.3 (0.2-0.8); MONOCYTES % 5.7 % (4.4-11.3); NEUTROPHILS # (AUTO) 4.4 (2.1-6.9); PLATELET COUNT 126 x10e3/uL (140-360); RED BLOOD COUNT 3.72 x10e6/uL (4.3-5.7); RED CELL DISTRIBUTION WIDTH 15.1 % (11.7-14.4)
[2019-08-29 02:29] LABS: ALBUMIN 2.6 g/dL (3.5-5.0); ALBUMIN/GLOBULIN RATIO 0.7 (0.8-2.0); ANION GAP 15.5 mmol/L (8-16); CALCIUM 8.4 mg/dL (8.4-10.2); CREATININE, SERUM 3.95 mg/dL (0.72-1.25); POTASSIUM 4.5 mmol/L (3.5-5.1)
[2019-08-29 02:38] LABS: CREATINE KINASE MB 6.1 ng/mL (0-5.0)
--- NOTE | 2019-08-29 06:14 | Emergency Department Note ---
History of Present Illnes History of Present Illness Chief Complaint: COVID PUI History of Present Illness This is a 74 year old male arrives to the ED with concerns of cough fever chills, patient came by EMS. Patient admits to having a family reunion last Wednesday and states symptoms have been soon after. . 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 Historian: Patient, Final Expense Agent/EMS Arrival Mode: [facility] Radiation: Reports non-radiation Severity: mild Duration (how long): day(s) Progression: worsening Relieving factors: none Past Medical/Family History Physician Review I have reviewed the patient's past medical and family history. Any updates have been documented here. Past Medical History Recent Fever: Yes Clinical Suspicion of Infectio: Yes New/Unexplained Change in Ment: No Past Medical History: Hypertension, Diabetes, CHF, A-Fib Other Medical History: KIDNEY PROBLEMS Past Surgical History: Pacer/AICD Other Surgery: SEPTUM SURGERY Social History Smoking Cessation: Never Smoker Other Last Tetanus: UTD Review of Systems Review of Systems Constitutional: Reports as per HPI, Reports chills, Reports fever EENTM: Reports no symptoms Cardiovascular: Reports no symptoms Respiratory: Reports as per HPI Gastrointestinal: Reports no symptoms Genitourinary: Reports no symptoms Musculoskeletal: Reports no symptoms Integumentary: Reports no symptoms Neurological: Reports no symptoms Psychological: Reports no symptoms Endocrine: Reports no symptoms Hematological/Lymphatic: Reports no symptoms Physical Exam Related Data Allergies: Coded Allergies: No Known Drug Allergies (Verified Allergy, Unknown, 10/12/16) Triage Vital Signs Vital Signs Date Time Temp Pulse Resp B/P (MAP) Pulse Ox O2 Delivery O2 Flow Rate FiO2 08/28/19 22:50 103.0 93 20 150/79 93 Vital signs reviewed: Yes Physical Exam CONSTITUTIONAL Constitutional: Present well-developed, Present distressed, Present ill appearing HENT HENT: Present normocephalic, Present atraumatic, Present oropharynx clear/moist, Present nose normal HENT L/R: Present left ext ear normal, Present right ext ear normal EYES Eyes: Reports PERRL, Reports conjunctivae normal NECK Neck: Present ROM normal PULMONARY Pulmonary: Present effort normal, Present respiratory distress CARDIOVASCULAR Cardiovascular: Present regular rhythm, Present heart sounds normal, Present capillary refill normal, Present normal rate GASTROINTESTINAL Abdominal: Present soft, Present nontender, Present bowel sounds normal GENITOURINARY Genitourinary: Present exam deferred SKIN Skin: Present warm, Present dry MUSCULOSKELETAL Musculoskeletal: Present ROM normal NEUROLOGICAL Neurological: Present alert, Present oriented x 3, Present no gross motor or sensory deficits PSYCHOLOGICAL Psychological: Present mood/affect normal, Present judgement normal Results Laboratory Result Diagram: 08/29/19 0145 08/29/19 0145 Laboratory Laboratory Tests Test 08/29/19 01:55 08/29/19 01:45 White Blood Count 5.10 x10e3/uL (4.8-10.8) Red Blood Count 3.72 x10e6/uL (4.3-5.7) Hemoglobin 11.5 g/dL (14.0-18.0) Hematocrit 35.1 % (38.2-49.6) Mean Corpuscular Volume 94.4 fL (81-99) Mean Corpuscular Hemoglobin 30.9 pg (28-32) Mean Corpuscular Hemoglobin Concent 32.8 g/dL (31-35) Red Cell Distribution Width 15.1 % (11.7-14.4) Platelet Count 126 x10e3/uL (140-360) Neutrophils (%) (Auto) 86.0 % (38.7-80.0) Lymphocytes (%) (Auto) 7.5 % (18.0-39.1) Monocytes (%) (Auto) 5.7 % (4.4-11.3) Eosinophils (%) (Auto) 0.0 % (0.0-6.0) Basophils (%) (Auto) 0.2 % (0.0-1.0) Neutrophils # (Auto) 4.4 (2.1-6.9) Lymphocytes # (Auto) 0.4 (1.0-3.2) Monocytes # (Auto) 0.3 (0.2-0.8) Eosinophils # (Auto) 0.0 (0.0-0.4) Basophils # (Auto) 0.0 (0.0-0.1) Absolute Immature Granulocyte (auto 0.03 x10e3/uL (0-0.1) Sodium Level 128 mmol/L (136-145) Potassium Level 4.5 mmol/L (3.5-5.1) Chloride Level 103 mmol/L (98-107) Carbon Dioxide Level 14 mmol/L (22-29) Anion Gap 15.5 mmol/L (8-16) Blood Urea Nitrogen 66 mg/dL (7-26) Creatinine 3.95 mg/dL (0.72-1.25) Estimat Glomerular Filtration Rate 15 ML/MIN (60-) BUN/Creatinine Ratio 17 (6-25) Glucose Level 78 mg/dL (74-118) Lactic Acid Level 0.9 mmol/L (0.5-2.0) Calcium Level 8.4 mg/dL (8.4-10.2) Total Bilirubin 0.7 mg/dL (0.2-1.2) Aspartate Amino Transf (AST/SGOT) 67 IU/L (5-34) Alanine Aminotransferase (ALT/SGPT) 27 IU/L (0-55) Alkaline Phosphatase 76 IU/L (40-150) Creatine Kinase 1517 IU/L (30-200) Creatine Kinase MB 6.10 ng/mL (0-5.0) Troponin I 0.157 ng/mL (0-0.300) Total Protein 6.2 g/dL (6.5-8.1) Albumin 2.6 g/dL (3.5-5.0) Globulin 3.6 g/dL (2.3-3.5) Albumin/Globulin Ratio 0.7 (0.8-2.0) Lab results reviewed: Yes Imaging Imaging results reviewed: Yes Impressions IMPRESSION: Patchy pulmonary airspace disease consistent with provided history of viral pneumonia. Procedures 12 Lead ECG Interpretation ECG Interpretation : ECG: ECG 1 Grinder Chipper: Interpreted by ED physician Prior ECG tracings: reviewed Rate: normal QRS axis: left Conduction: incomplete RBBB ST segments normal: Yes T waves normal: Yes Clinical Impression: non-specific ECG Critical Care Time Total Critical Care Time (min): 65 Critcal care necessary due to: respiratory failure Assessment & Plan Medical Decision Making MDM 74-year-old male brought to the ED in acute respiratory distress secondary to Covid 19. Patient required emergent intervention the form of supplemental oxygen, patient monitored in the emergency room for several hours- patient is awaiting a hospital bed. Patient with marked elevated creatinine kinase noted, mild elevation choke noted. Case discussed with patient's primary care physician who reported the patient has an ejection fraction of close to 10%, which is likely with the preceding lab values are to be due to. Assessment & Plan Final Impression: (1) Acute respiratory disease due to COVID-19 virus Depart Disposition: ADMITTED Last Vital Signs Date Time Temp Pulse Resp B/P (MAP) Pulse Ox O2 Delivery O2 Flow Rate FiO2 08/29/19 04:44 98.3 81 15 123/76 96 Home Meds Active Scripts [Apixab] 5 TABLET No Conflict Check, 5 MG PO BID for 30 Days, #60 Prov:ZANE HAMPTON MD 01/18/16 Amiodarone Hcl (AMIODARONE HCL) 200 Mg Tablet, 200 MG PO DAILY for 30 Days, #30 Prov:ZANE HAMPTON MD 01/18/16 Reported Medications Bumetanide (BUMETANIDE) 1 Mg Tablet, 1 MG PO BID, #30 TAB 07/05/17 Spironolactone (SPIRONOLACTONE) 25 Mg Tablet, 25 MG PO DAILY, #60 TAB 07/05/17 [Flucticasone ] No Conflict Check, 100 MCG INH QID 10/12/16 Montelukast Sodium (SINGULAIR) 10 Mg Tablet, 1 TAB PO DAILY 10/12/16 Budesonide/Formoterol Fumarate (SYMBICORT 160-4.5 MCG INHALER) 10.2 Gm Hfa.aer.ad, 2 INH BID 10/12/16 Glimepiride (GLIMEPIRIDE) 2 Mg Tablet, 4 MG PO BID, TAB 10/12/16 Carvedilol (CARVEDILOL) 12.5 Mg Tablet, 12.5 MG PO BID, #60 TAB 10/12/16 Pantoprazole Sodium* (PROTONIX) 40 Mg Tablet.dr, 40 MG PO DAILY, TAB 08/20/16 Allopurinol (ALLOPURINOL) 300 Mg Tablet, 300 MG PO DAILY, #30 TAB 08/20/16 Hydralazine Hcl (HYDRALAZINE HCL) 25 Mg Tab, 25 MG PO BID for 60 Days, TAB 01/18/16 Medications in the ED Dexamethasone Sodium Phosphate 6 mg ONCE ONCE IV Last administered on 08/29/19at 02:00; Admin Dose 6 MG; Start 08/29/19 at 00:00; Stop 08/29/19 at 00:10; Status DC Azithromycin 250 ml @ 200 mls/hr DAILY IV ; Start 08/29/19 at 09:00; Stop 09/05/19 at 08:59 Acetaminophen 650 mg Q6H PRN PO Mild Pain (1-3) or Fever>100.8 Last administered on 08/29/19at 02:00; Admin Dose 650 MG; Start 08/29/19 at 02:15; Stop 09/28/19 at 02:14 Sodium Chloride 1,000 ml @ 250 mls/hr Q4H STAT IV Last administered on 08/29/19at 04:44; Admin Dose 250 MLS/HR; Start 08/29/19 at 03:19; Stop 08/29/19 at 05:25; Status DC SUN MENDEZ DO Aug 29, 2019 06:14
--- NOTE | 2019-08-29 07:19 | NUR ---
NURSING REPORT RECIEVED FROM DELORES.
--- NOTE | 2019-08-29 14:08 | NUR ---
Transfer initiated during senior tableau developer at [address] [facility] transfer center. Pt accepted at this time [address] Kiel Adams at [facility], report to be called [phone] ext. [phone]. Admin approval Geraldine Soto [facility] [address] [place] [address]
--- NOTE | 2019-08-29 14:10 | NUR ---
NURSING REPORT GIVEN TO JACY SOMMER-ORACLE DATABASE ANALYST AT [facility] IN [facility]. SPOKE WITH PTS SPOUSE, SCARLET MENDEZ PH:[phone]. UPDATE PROVIDED.
== END | disposition other institution (70) ==
LOC: ER 23:29
DX: U07.1 COVID-19 (principal); J06.9 Acute upper respiratory infection, unspecified; R50.9 Fever, unspecified; R05 Cough; I10 Essential (primary) hypertension; E11.9 Type 2 diabetes mellitus without complications; I50.9 Heart failure, unspecified; I48.91 Unspecified atrial fibrillation
CPT/HCPCS: 36415; 71045; 80053; 82550; 82553; 83605; 84484; 85025; 87040; 87635; 93005; J0456; J1100; J7030